=== PATIENT | male | born 1970 | race African-American/Black ===

== ENCOUNTER 2018-08-22 11:26 | Observation (INO) | payer SELFPAY ==
[2018-08-22] MEDS ORDERED: Sodium Chloride 0.9% 2.5 ML Syringe FLUSH PRN (11:30)
[2018-08-22] MEDS ORDERED: Aspirin 81 MG Tab.Chew PO ONE (11:30)
[2018-08-22] MEDS ORDERED: Nitroglycerin 0.4 MG Tab.SL SL PRN (11:30)
--- NOTE | 2018-08-22 11:33 | EDM.PDOC ---
ED HPI GENERAL MEDICAL PROBLEM - General Chief Complaint: Chest Pain Stated Complaint: SPOKE TO NURSE Time Seen by Provider: 08/22/18 11:27 Source of Information: Reports: Patient History Limitations: Reports: No Limitations - History of Present Illness INITIAL COMMENTS - FREE TEXT/NARRATIVE: HISTORY AND PHYSICAL: History of present illness: Patient is a 48-year-old male who presents to the emergency room with complaints of midsternal chest pain and shortness of breath 2 days. He states this morning the symptoms became worse and tried to see his despatch clerk, Dr. Chua, who recommended he come to the emergency room for evaluation. He states that the chest pain does feel somewhat improved if he lays flat in a prone position. Does feel somewhat more short of breath with ambulation. The pain does not radiate anywhere. Patient denies any fever, chills, headache, change in vision, syncope or near syncope. Denies any back pain or cough. Denies any abdominal pain, nausea, vomiting, diarrhea, constipation or dysuria. Has not noted any blood in urine or stool. Patient has been eating and drinking appropriately. Patient has a past medical history of mitral valve regurgitation, congestive heart failure and past GA. Originally from [facility] Review of systems: As per history of present illness and below otherwise all systems reviewed and negative. Past medical history: As per history of present illness and as reviewed below otherwise noncontributory. Surgical history: As per history of present illness and as reviewed below otherwise noncontributory. Social history: See social history for further information Family history: As per history of present illness and as reviewed below otherwise noncontributory. Physical exam: General: Well-developed and well-nourished 48-year-old -[place] male. Alert and oriented. Nontoxic appearing and in no acute distress. HEENT: Atraumatic, normocephalic, pupils equal and reactive bilaterally, negative for conjunctival pallor or scleral icterus, mucous membranes moist, TMs normal bilaterally, throat clear, neck supple, nontender, trachea midline. No drooling or trismus noted. No meningeal signs. No hot potato voice noted. Lungs: Clear to auscultation, breath sounds equal bilaterally, chest nontender. Heart: S1S2, regular rate and rhythm without overt murmur Abdomen: Soft, nondistended, nontender. Negative for masses or hepatosplenomegaly. Negative for costovertebral tenderness. Pelvis: Stable nontender. Genitourinary: Deferred. Rectal: Deferred. Skin: Midline sternal scar noted to chest. Intact, warm, dry. No lesions or rashes noted. Extremities: Atraumatic, moves all extremities per self without difficulty or deficits, negative for cords or calf pain. Neurovascular unremarkable. Neuro: Awake, alert, oriented. Cranial nerves II through XII unremarkable. Cerebellum unremarkable. Motor and sensory unremarkable throughout. Exam nonfocal. Notes: Nitroglycerin being held at this time as his blood pressure, 103/70. Chest x-ray mildly prominent cardiac silhouette. Aortic valve prosthesis. Sternotomy. Pulmonary vascularity is normal. No focal airspace opacity. No pneumothorax or effusion. Lab work is unremarkable. Due to patient's history and presentation will admit him for observation. Dr. Vann was consulted on this case and is agreeable. Diagnostics: CBC, CMP, troponin, EKG, one view chest, BNP Therapeutics: Aspirin, saline lock, nitroglycerin sublingual 3 (HOLD) Impression: Chest pain r/o GA Plan: Observation admission to Med/Surg with telemetry Definitive disposition and diagnosis as appropriate pending reevaluation and review of above. Right Chest Pain Pain Score (Numeric/FACES): 6 - Related Data Allergies Allergy/AdvReac Type Severity Reaction Status Date / Time No Known Allergies Allergy Verified 08/22/18 11:32 Home Meds: Home Meds Fish Oil/[place]-3 Fatty Acids [Fish Oil 1,000 MG] 1 each PO DAILY 02/21/18 [ History] Aspirin [Adult Low Dose Aspirin EC] 81 mg PO DAILY #100 tablet. 02/23/18 [Rx] Furosemide [Lasix] 40 mg PO BID #60 tablet 02/23/18 [Rx] Potassium Chloride [Klor-Con M20] 20 meq PO BID #60 tab.er 02/23/18 [Rx] Carvedilol 25 mg PO BID 08/22/18 [History] Losartan [Cozaar] 25 mg PO BEDTIME 08/22/18 [History] Past Medical History Cardiovascular History: Reports: Heart Failure, Heart Murmur, Other (See Below) (mitral valve regurgitation; elevated right ventricular pressure noted on echocardiogram) Oncologic (Cancer) History: Reports: None - Infectious Disease History Infectious Disease History: Reports: Chicken Pox - Past Surgical History GI Surgical History: Reports: Hernia Repair/Other Social & Family History - Family History Family Medical History: Noncontributory - Caffeine Use Caffeine Use: Reports: None ED ROS GENERAL - Review of Systems Review Of Systems: ROS reveals no pertinent complaints other than HPI. ED EXAM, GENERAL - Physical Exam Exam: See Below (See dictation) Course - Vital Signs Last Recorded V/S: Last Vital Signs Temp 98.8 F 08/22/18 13:08 Pulse 76 08/22/18 13:08 Resp 22 H 08/22/18 13:08 BP 110/67 08/22/18 13:08 Pulse Ox 95 08/22/18 13:08 - Orders/Labs/Meds Orders: Active Orders 24 hr Category Date Time Status Admission Status [Patient Status] [ADT] Stat ADT 08/22/18 12:51 Active EKG Documentation Completion [RC] STAT Care 08/22/18 11:30 Active Nitroglycerin [Nitrostat] Med 08/22/18 11:30 Active 0.4 mg SL Q5M PRN Sodium Chloride 0.9% [Saline Flush] Med 08/22/18 11:30 Active 10 ml FLUSH ASDIRECTED PRN Sodium Chloride 0.9% [Saline Flush] Med 08/22/18 11:30 Active 2.5 ml FLUSH ASDIRECTED PRN Saline Lock Insert [OM.PC] Stat Oth 08/22/18 11:30 Ordered Medication Orders Acetaminophen (Tylenol) 650 mg PO Q4H PRN PRN Reason: Pain (mild 1-3) Nitroglycerin (Nitrostat) 0.4 mg SL Q5M PRN PRN Reason: Chest Pain Ondansetron HCl (Zofran Odt) 4 mg PO Q4H PRN PRN Reason: nausea, able to take PO Sodium Chloride (Saline Flush) 10 ml FLUSH ASDIRECTED PRN PRN Reason: Keep Vein Open Last Admin: 08/22/18 12:38 Dose: 10 ml Sodium Chloride (Saline Flush) 2.5 ml FLUSH ASDIRECTED PRN PRN Reason: Keep Vein Open Last Admin: 08/22/18 12:38 Dose: 2.5 ml Labs: Laboratory Tests 08/22/18 08/22/18 08/22/18 Range/Units 11:35 11:35 11:35 WBC 9.15 (4.0-11.0) K/uL RBC 5.33 (4.50-5.90) M/uL Hgb 14.0 (13.0-17.0) g/dL Hct 42.6 (38.0-50.0) % MCV 79.9 L (80.0-98.0) fL MCH 26.3 L (27.0-32.0) pg MCHC 32.9 (31.0-37.0) g/dL RDW Std Deviation 51.3 (28.0-62.0) fl RDW Coeff of Michael 17 H (11.0-15.0) % Plt Count 121 L (150-400) K/uL MPV (7.40-12.00) fL Neut % (Auto) 71.0 (48.0-80.0) % Lymph % (Auto) 16.4 (16.0-40.0) % Wallace % (Auto) 11.6 (0.0-15.0) % Eos % (Auto) 0.8 (0.0-7.0) % Baso % (Auto) 0.2 (0.0-1.5) % Neut # (Auto) 6.5 H (1.4-5.7) K/uL Lymph # (Auto) 1.5 (0.6-2.4) K/uL Wallace # (Auto) 1.1 H (0.0-0.8) K/uL Eos # (Auto) 0.1 (0.0-0.7) K/uL Baso # (Auto) 0.0 (0.0-0.1) K/uL Nucleated RBC % 0.0 /100WBC Nucleated RBCs # 0 K/uL Sodium 138 (136-148) mmol/L Potassium 4.0 (3.5-5.1) mmol/L Chloride 103 (98-107) mmol/L Carbon Dioxide 28.0 (21.0-32.0) mmol/L BUN 17 (7.0-18.0) mg/dL Creatinine 1.1 (0.8-1.3) mg/dL Est Cr Clr Drug Dosing 75.95 mL/min Estimated GFR (MDRD) > 60.0 ml/min Glucose 137 H (74-106) mg/dL Calcium 9.3 (8.5-10.1) mg/dL Total Bilirubin 1.4 H (0.2-1.0) mg/dL AST 23 (15-37) IU/L ALT 23 (14-63) IU/L Alkaline Phosphatase 58 (46-116) U/L Troponin I < 0.050 (0.000-0.056) ng/mL B-Natriuretic Peptide 79 (<100) PG/ML Total Protein 8.2 (6.4-8.2) g/dL Albumin 3.4 (3.4-5.0) g/dL Globulin 4.8 H (2.6-4.0) g/dL Albumin/Globulin Ratio 0.7 L (0.9-1.6) Meds: Medications Generic Name Dose Route Start Last Admin Trade Name Freq PRN Reason Stop Dose Admin Acetaminophen 650 mg 08/22/18 13:30 Tylenol PO Q4H PRN Pain (mild 1-3) Nitroglycerin 0.4 mg 08/22/18 11:30 Nitrostat SL Q5M PRN Chest Pain Ondansetron HCl 4 mg 08/22/18 13:30 Zofran Odt PO Q4H PRN nausea, able to take PO Sodium Chloride 10 ml 08/22/18 11:30 08/22/18 12:38 Saline Flush FLUSH 10 ml ASDIRECTED PRN Administration Keep Vein Open Sodium Chloride 2.5 ml 08/22/18 11:30 08/22/18 12:38 Saline Flush FLUSH 2.5 ml ASDIRECTED PRN Administration Keep Vein Open Discontinued Medications Generic Name Dose Route Start Last Admin Trade Name Freq PRN Reason Stop Dose Admin Aspirin 324 mg 08/22/18 11:30 08/22/18 11:54 Aspirin PO 08/22/18 11:31 324 mg ONETIME ONE Administration Morphine Sulfate 2 mg 08/22/18 12:18 08/22/18 12:37 Morphine IVPUSH 08/22/18 12:19 2 mg ONETIME ONE Administration Departure - Departure Time of Disposition: 13:36 Disposition: Refer to Observation Clinical Impression: Chest pain, rule out acute myocardial infarction - My Orders Last 24 Hours: My Active Orders 08/22/18 11:30 EKG Documentation Completion [RC] STAT Nitroglycerin [Nitrostat] 0.4 mg SL Q5M PRN Sodium Chloride 0.9% [Saline Flush] 10 ml FLUSH ASDIRECTED PRN Sodium Chloride 0.9% [Saline Flush] 2.5 ml FLUSH ASDIRECTED PRN Saline Lock Insert [OM.PC] Stat 08/22/18 12:51 Admission Status [Patient Status] [ADT] Stat - Assessment/Plan Last 24 Hours: My Active Orders 08/22/18 11:30 EKG Documentation Completion [RC] STAT Nitroglycerin [Nitrostat] 0.4 mg SL Q5M PRN Sodium Chloride 0.9% [Saline Flush] 10 ml FLUSH ASDIRECTED PRN Sodium Chloride 0.9% [Saline Flush] 2.5 ml FLUSH ASDIRECTED PRN Saline Lock Insert [OM.PC] Stat 08/22/18 12:51 Admission Status [Patient Status] [ADT] Stat
[2018-08-22] MEDS ORDERED: Morphine 2 MG/ML Syringe IVPUSH ONE (12:18)
[2018-08-22 12:19] LABS: CHLORIDE,CL 103 mmol/L (98-107); SODIUM,NA 138 mmol/L (136-148)
[2018-08-22] MEDS: Sodium Chloride 0.9% 10 ML Syringe FLUSH PRN ×2 (12:38→21:25)
--- NOTE | 2018-08-22 12:45 | CR ---
INDICATION: Chest pain. TECHNIQUE: One view. FINDINGS: Mildly prominent cardiac silhouette. Aortic valve prosthesis. Sternotomy. Pulmonary vascularity is normal. No focal airspace opacity. No pneumothorax or effusion. Dictated by Artis Belle MD @ Aug 22 2018 12:42PM Signed by Dr. Artis Belle @ Aug 22 2018 12:43PM
[2018-08-22] MEDS ORDERED: Ondansetron 4 MG Tab.DIS PO PRN (13:30)
[2018-08-22] MEDS ORDERED: Acetaminophen 325 MG Tab PO PRN (13:30)
--- NOTE | 2018-08-22 13:42 | PCM.HP ---
H&P History of Present Illness - General Date of Service: 08/22/18 Admit Problem/Dx: Admission Diagnosis/Problem Admission Diagnosis/Problem Chest pain Source of Information: Patient History Limitations: Reports: No Limitations - History of Present Illness Initial Comments - Free Text/Narative: THis 48 year old male with pmh of HTN, CHF, and recent mechanical mitral valve placement on Coumadin in April presented to the ED with R sided chest pain that worsens when he woughs and radiates around his chest and up his neck. Nothing else makes it worse besides coughing. He attempted to take Tylenol the last couple days but it did not help. He denies recent fevers, chills, productive cough, no palpitations or L sided chest pain. No abdominal pain, no urinary or bowel concerns. No peripheral edema or leg pain. No recent long distance travel. He reports he recently started working out and that is when this started hurting, no other trauma or injury. No tobacco use, quit drinking 3 years ago and no recreational drug use. In the ED, no leukocytosis noted, Platelets 121,000. BMP WNL. GLucose 137, Bili 1.4, which is near baseline. Troponin negative. CXR negative. VS stable. EKG reports LVH, no acute ST changes, SR, rates 70s. He will be admitted for chest pain rule out. Dermatology Physician, Dr Berrios Right Chest Pain Pain Score (Numeric/FACES): 6 - Related Data Allergies/Adverse Reactions: Allergies Allergy/AdvReac Type Severity Reaction Status Date / Time No Known Allergies Allergy Verified 08/22/18 11:32 Home Medications: Home Meds Fish Oil/[place]-3 Fatty Acids [Fish Oil 1,000 MG] 1 each PO DAILY 02/21/18 [ History] Aspirin [Adult Low Dose Aspirin EC] 81 mg PO DAILY #100 tablet. 02/23/18 [Rx] Furosemide [Lasix] 40 mg PO BID #60 tablet 02/23/18 [Rx] Potassium Chloride [Klor-Con M20] 20 meq PO BID #60 tab.er 02/23/18 [Rx] Carvedilol 25 mg PO BID 08/22/18 [History] Losartan [Cozaar] 25 mg PO BEDTIME 08/22/18 [History] Past Medical History Cardiovascular History: Reports: Heart Failure, Heart Murmur, Heart Valve Replacement, Other (See Below) (mitral valve regurgitation; elevated right ventricular pressure noted on echocardiogram) Respiratory History: Reports: None Gastrointestinal History: Reports: None Genitourinary History: Reports: None Musculoskeletal History: Reports: None Endocrine/Metabolic History: Denies: Diabetes, Type II, Hypothyroidism Oncologic (Cancer) History: Reports: None - Infectious Disease History Infectious Disease History: Reports: Chicken Pox - Past Surgical History Cardiovascular Surgical History: Reports: Valve Replacement GI Surgical History: Reports: Hernia Repair/Other Social & Family History - Family History Family Medical History: Noncontributory - Tobacco Use Smoking Status *Q: Never Smoker - Caffeine Use Caffeine Use: Reports: None - Alcohol Use Alcohol Use History: No Alcohol Use in Last Twelve Months: No - Recreational Drug Use Recreational Drug Use: No H&P Review of Systems - Review of Systems: Review Of Systems: See Below General: Reports: No Symptoms. Denies: Fever, Chills, Malaise, Weakness HEENT: Reports: No Symptoms. Denies: Headaches, Sinus Congestion Pulmonary: Denies: Shortness of Breath Cardiovascular: Reports: Chest Pain (R sided near lower rib cage). Denies: Edema, Lightheadedness, Blood Pressure Problem Gastrointestinal: Denies: Abdominal Pain, Black Stool, Bloody Stool, Nausea, Vomiting Genitourinary: Reports: No Symptoms. Denies: Dysuria, Frequency, Burning Musculoskeletal: Reports: No Symptoms Skin: Reports: No Symptoms Psychiatric: Reports: No Symptoms Neurological: Reports: No Symptoms Hematologic/Lymphatic: Reports: No Symptoms Immunologic: Reports: No Symptoms Exam - Exam Exam: See Below - Vital Signs Vital Signs: Last Vital Signs Temp 98.8 F 08/22/18 13:08 Pulse 76 08/22/18 13:08 Resp 22 H 08/22/18 13:08 BP 110/67 08/22/18 13:08 Pulse Ox 95 08/22/18 13:08 Weight: 81.647 kg - Exam General: Alert, Oriented, Cooperative HEENT: Conjunctiva Clear Lungs: Clear to Auscultation, Normal Respiratory Effort Cardiovascular: Regular Rate, Regular Rhythm GI/Abdominal Exam: Normal Bowel Sounds, Soft, Non-Tender, No Organomegaly, No Mass Back Exam: Normal Inspection, Full Range of Motion Extremities: Normal Inspection, Normal Range of Motion, Non-Tender, No Pedal Edema Neuro Extensive - Mental Status: Alert, Oriented x3 Neuro Extensive - Motor, Sensory, Reflexes: CN II-XII Intact Psychiatric: Alert, Normal Affect, Normal Mood - Patient Data Lab Results Last 24 hrs: Laboratory Results - last 24 hr 08/22/18 08/22/18 08/22/18 Range/Units 11:35 11:35 11:35 WBC 9.15 (4.0-11.0) K/uL RBC 5.33 (4.50-5.90) M/uL Hgb 14.0 (13.0-17.0) g/dL Hct 42.6 (38.0-50.0) % MCV 79.9 L (80.0-98.0) fL MCH 26.3 L (27.0-32.0) pg MCHC 32.9 (31.0-37.0) g/dL RDW Std Deviation 51.3 (28.0-62.0) fl RDW Coeff of Mihcael 17 H (11.0-15.0) % Plt Count 121 L (150-400) K/uL MPV (7.40-12.00) fL Neut % (Auto) 71.0 (48.0-80.0) % Lymph % (Auto) 16.4 (16.0-40.0) % [place] % (Auto) 11.6 (0.0-15.0) % Eos % (Auto) 0.8 (0.0-7.0) % Baso % (Auto) 0.2 (0.0-1.5) % Neut # (Auto) 6.5 H (1.4-5.7) K/uL Lymph # (Auto) 1.5 (0.6-2.4) K/uL [place] # (Auto) 1.1 H (0.0-0.8) K/uL Eos # (Auto) 0.1 (0.0-0.7) K/uL Baso # (Auto) 0.0 (0.0-0.1) K/uL Nucleated RBC % 0.0 /100WBC Nucleated RBCs # 0 K/uL Sodium 138 (136-148) mmol/L Potassium 4.0 (3.5-5.1) mmol/L Chloride 103 (98-107) mmol/L Carbon Dioxide 28.0 (21.0-32.0) mmol/L BUN 17 (7.0-18.0) mg/dL Creatinine 1.1 (0.8-1.3) mg/dL Est Cr Clr Drug Dosing 75.95 mL/min Estimated GFR (MDRD) > 60.0 ml/min Glucose 137 H (74-106) mg/dL Calcium 9.3 (8.5-10.1) mg/dL Total Bilirubin 1.4 H (0.2-1.0) mg/dL AST 23 (15-37) IU/L ALT 23 (14-63) IU/L Alkaline Phosphatase 58 (46-116) U/L Troponin I < 0.050 (0.000-0.056) ng/mL B-Natriuretic Peptide 79 (<100) PG/ML Total Protein 8.2 (6.4-8.2) g/dL Albumin 3.4 (3.4-5.0) g/dL Globulin 4.8 H (2.6-4.0) g/dL Albumin/Globulin Ratio 0.7 L (0.9-1.6) Result Diagrams: 08/22/18 11:35 08/22/18 11:35 EKG INTERPRETATION EKG Date: 08/22/18 Rhythm: NSR Rate (Beats/Min): 75 QRS: Normal (LVH) ST-T: Normal QT: Normal - Problem List (1) Atypical chest pain SNOMED Code(s): 759166458 ICD Code: R07.89 - OTHER CHEST PAIN Status: Acute Current Visit: Yes (2) Anticoagulated SNOMED Code(s): 450514300, 955788994 ICD Code: Z79.01 - ROTARY FURNACE OPERATOR (CURRENT) USE OF ANTICOAGULANTS Status: Chronic Current Visit: Yes (3) Mitral valve replaced SNOMED Code(s): 7004646566047, 0779130379835 ICD Code: Z95.2 - PRESENCE OF PROSTHETIC HEART VALVE Status: Chronic Current Visit: Yes (4) Congestive heart failure SNOMED Code(s): 16590942 ICD Code: I50.9 - HEART FAILURE, UNSPECIFIED Status: Chronic Current Visit: No Qualifiers: Heart failure type: unspecified Heart failure chronicity: chronic Qualified Code(s): I50.9 - Heart failure, unspecified (5) Afib SNOMED Code(s): 29286113 ICD Code: I48.91 - UNSPECIFIED ATRIAL FIBRILLATION Status: Acute Current Visit: Yes Problem List Initiated/Reviewed/Updated: Yes Orders Last 24hrs: Active Orders 24 hr Category Date Time Status Admission Status [Patient Status] [ADT] Stat ADT 08/22/18 12:51 Active Antiembolic Devices [RC] PER UNIT ROUTINE Care 08/22/18 13:31 Ordered EKG Documentation Completion [RC] STAT Care 08/22/18 11:30 Active Intake and Output [RC] QSHIFT Care 08/22/18 13:30 Ordered Oxygen Therapy [RC] PRN Care 08/22/18 13:30 Ordered Telemetry Monitoring [Cardiac Monitoring] [RC] . Care 08/22/18 13:33 Ordered DIRECTED Up ad Corina [RC] ASDIRECTED Care 08/22/18 13:30 Ordered VTE/DVT Education [RC] PER UNIT ROUTINE Care 08/22/18 13:30 Ordered Vital Signs [RC] Q4H Care 08/22/18 13:30 Ordered Heart Healthy Diet [DIET] Diet 08/22/18 Lunch Ordered TROPONIN I [CHEM] Q6H Lab 08/22/18 17:30 Ordered TROPONIN I [CHEM] Q6H Lab 08/22/18 23:30 Ordered Acetaminophen [Tylenol] Med 08/22/18 13:30 Ordered 650 mg PO Q4H PRN Nitroglycerin [Nitrostat] Med 08/22/18 11:30 Active 0.4 mg SL Q5M PRN Ondansetron [Zofran ODT] Med 08/22/18 13:30 Ordered 4 mg PO Q4H PRN Sodium Chloride 0.9% [Saline Flush] Med 08/22/18 11:30 Active 10 ml FLUSH ASDIRECTED PRN Sodium Chloride 0.9% [Saline Flush] Med 08/22/18 11:30 Active 2.5 ml FLUSH ASDIRECTED PRN Saline Lock Insert [OM.PC] Stat Oth 08/22/18 11:30 Ordered Sequential Compression Device [OM.PC] Per Unit Routine Oth 08/22/18 13:31 Ordered Resuscitation Status Routine Resus Stat 08/22/18 13:30 Ordered Medication Orders Acetaminophen (Tylenol) 650 mg PO Q4H PRN PRN Reason: Pain (mild 1-3) Nitroglycerin (Nitrostat) 0.4 mg SL Q5M PRN PRN Reason: Chest Pain Ondansetron HCl (Zofran Odt) 4 mg PO Q4H PRN PRN Reason: nausea, able to take PO Sodium Chloride (Saline Flush) 10 ml FLUSH ASDIRECTED PRN PRN Reason: Keep Vein Open Last Admin: 08/22/18 12:38 Dose: 10 ml Sodium Chloride (Saline Flush) 2.5 ml FLUSH ASDIRECTED PRN PRN Reason: Keep Vein Open Last Admin: 08/22/18 12:38 Dose: 2.5 ml Assessment/Plan Comment:: This 48 year old male admitted with atypical chest pain, r sided 1. Chest pain: Trend troponins and monitor on telemetry due to history. Set up with outpatient appointment with his Dermatology Physician Dr berrios. Recently started working out more, may be musculoskeletal in nature. 2. Afib: occurred post operatively after MV replacement. Continue Coreg and Coumadin. Check INR. 3. Cardiomyopathy: Continue Losartan, Aldactone. No signs of acute CHF. VTE prophylaxis: Coumadin Dispo: 1 day
[2018-08-22] MEDS ORDERED: Warfarin 2.5 MG Tab PO SCH (15:00)
[2018-08-22] MEDS ORDERED: Losartan 50 MG Tab PO SCH (21:00)
[2018-08-22] MEDS: Carvedilol 25 MG Tab PO SCH (21:24)
[2018-08-23] MEDS: traMADol 50 MG Tab PO PRN ×3 (00:42→14:41)
[2018-08-23] MEDS: Carvedilol 25 MG Tab PO SCH (08:58)
[2018-08-23] MEDS ORDERED: Fish Oil/Omega-3 Fatty Acids 1 Gm Cap PO SCH (09:00)
[2018-08-23] MEDS ORDERED: LYCOPENE PO SCH (09:00)
[2018-08-23] MEDS ORDERED: Furosemide 40 MG Tab PO SCH (09:00)
[2018-08-23] MEDS ORDERED: MV CA IRON MIN PO SCH (09:00)
[2018-08-23] MEDS ORDERED: LUT PO SCH (09:00)
[2018-08-23] MEDS ORDERED: Aspirin 81 MG Tab.EC PO SCH (09:00)
[2018-08-23] MEDS ORDERED: Potassium Chloride 20 MEQ Tab.ER PO SCH (09:00)
[2018-08-23] MEDS ORDERED: [UNRECOGNIZED DRUG - OTHER] PO SCH (09:00)
[2018-08-23] MEDS ORDERED: Spironolactone 25 MG Tab PO SCH (09:00)
[2018-08-23] MEDS ORDERED: Warfarin 2.5 MG Tab PO SCH (14:00)
--- NOTE | 2018-08-23 16:15 | PCM.DCSUM1 ---
Discharge Summary - Discharge Data Discharge Date: 08/23/18 Discharge Disposition: Home, Self-Care 01 Condition: Good - Patient Summary/Data Hospital Course: 48 year old male with pmh of HTN, CHF, and recent mechanical mitral valve placement on Coumadin in April presented to the ED with complaints of chest pain. He ruled out for acute coronary syndrome with serial negative cardiac enzymes and EKGs. Today he is requesting discharge home. He is to follow up with Dr. Cornell. His INR was not at target. He is to increase his Coumadin to 7.5 for the next two days until he follows up with the Coumadin clinic on Saturday. - Discharge Plan Home Medications: Home Meds Fish Oil/[place]-3 Fatty Acids [Fish Oil 1,000 MG] 2 each PO DAILY 02/21/18 [ History] Aspirin [Adult Low Dose Aspirin EC] 81 mg PO DAILY #100 tablet. 02/23/18 [Rx] Carvedilol 25 mg PO BID 08/22/18 [History] FA/Lycopene/Lut/MV,Ca,Iron,Min [Centrum] 1 tab PO DAILY 08/22/18 [History] Furosemide [Lasix] 40 mg PO DAILY 08/22/18 [History] Losartan [Cozaar] 25 mg PO BEDTIME 08/22/18 [History] Potassium Chloride [Klor-Con M20] 20 meq PO DAILY 08/22/18 [History] Spironolactone [Aldactone] 12.5 mg PO DAILY 08/22/18 [History] Warfarin [Coumadin] 5 mg PO ASDIRECTED 08/22/18 [History] Patient Handouts: Nonspecific Chest Pain, [id number] Referrals: Viet Berrios MD [Physician] - 09/02/18 3:00 pm - Discharge Summary/Plan Comment DC Time >30 min.: No - Patient Data Vitals - Most Recent: Last Vital Signs Temp 36.7 C 08/23/18 12:00 Pulse 71 08/23/18 12:00 Resp 16 08/23/18 12:00 BP 98/57 L 08/23/18 12:00 Pulse Ox 94 L 08/23/18 12:00 Weight - Most Recent: 81.647 kg I&O - Last 24 hours: Intake & Output 08/23/18 08/23/18 08/23/18 06:59 14:59 22:59 Intake Total 480 Output Total 600 Balance -120 Lab Results - Last 24 hrs: Laboratory Results - last 24 hr 08/22/18 08/22/18 08/23/18 Range/Units 17:28 23:32 05:58 INR 1.17 Troponin I < 0.050 < 0.050 (0.000-0.056) ng/mL Med Orders - Current: Current Medications Acetaminophen (Tylenol) 650 mg PO Q4H PRN PRN Reason: Pain (mild 1-3) Last Admin: 08/23/18 04:51 Dose: 650 mg Aspirin (Halfprin) 81 mg PO DAILY [facility] Last Admin: 08/23/18 08:58 Dose: 81 mg Carvedilol (Coreg) 25 mg PO BID [facility] Last Admin: 08/23/18 08:58 Dose: 25 mg Fish Oil (Fish Oil) 2 gm PO DAILY [facility] Last Admin: 08/23/18 08:59 Dose: 2 gm Furosemide (Lasix) 40 mg PO DAILY [facility] Last Admin: 08/23/18 08:57 Dose: 40 mg Losartan Potassium (Cozaar) 25 mg PO BEDTIME [facility] Last Admin: 08/22/18 21:24 Dose: 25 mg Nitroglycerin (Nitrostat) 0.4 mg SL Q5M PRN PRN Reason: Chest Pain Ondansetron HCl (Zofran Odt) 4 mg PO Q4H PRN PRN Reason: nausea, able to take PO Fa/Lycopene/Lut/Mv, (Ca,Iron,Min 1 Tab) 1 each PO DAILY [facility] Last Admin: 08/23/18 09:06 Dose: 1 each Potassium Chloride (Klor-Con M20) 20 meq PO DAILY [facility] Last Admin: 08/23/18 08:59 Dose: 20 meq Sodium Chloride (Saline Flush) 10 ml FLUSH ASDIRECTED PRN PRN Reason: Keep Vein Open Last Admin: 08/22/18 21:25 Dose: 10 ml Sodium Chloride (Saline Flush) 2.5 ml FLUSH ASDIRECTED PRN PRN Reason: Keep Vein Open Last Admin: 08/22/18 12:38 Dose: 2.5 ml Spironolactone (Aldactone) 12.5 mg PO DAILY [facility] Last Admin: 08/23/18 08:59 Dose: 12.5 mg Tramadol HCl (Ultram) 50 mg PO Q6H PRN PRN Reason: Pain Last Admin: 08/23/18 14:41 Dose: 50 mg Warfarin Sodium (Coumadin Ask) 1 each PO DAILY@1400 [facility] Last Admin: 08/23/18 14:45 Dose: Not Given Discontinued Medications Aspirin (Aspirin) 324 mg PO ONETIME ONE Stop: 08/22/18 11:31 Last Admin: 08/22/18 11:54 Dose: 324 mg Morphine Sulfate (Morphine) 2 mg IVPUSH ONETIME ONE Stop: 08/22/18 12:19 Last Admin: 08/22/18 12:37 Dose: 2 mg Warfarin Sodium (Coumadin) 7.5 mg PO 08/22/18@1500 [facility] Stop: 08/22/18 15:01 Last Admin: 08/22/18 15:10 Dose: 7.5 mg Warfarin Sodium (Coumadin) 7.5 mg PO 08/23/18@1400 [facility] Stop: 08/23/18 14:01 Last Admin: 08/23/18 14:18 Dose: 7.5 mg
== END 2018-08-23 16:15 | disposition home or self-care (01) ==
LOC: MW.ED 11:26 → MW.MS 13:27
PROVIDERS: ADMIT Internal Medicine; ATTEND Internal Medicine
DX: R07.89 Other chest pain (principal); I43 Cardiomyopathy in diseases classified elsewhere; I11.0 Hypertensive heart disease with heart failure; I50.9 Heart failure, unspecified; I48.91 Unspecified atrial fibrillation; E11.9 Type 2 diabetes mellitus without complications; E03.9 Hypothyroidism, unspecified; Z79.82 Long term (current) use of aspirin; Z79.01 Long term (current) use of anticoagulants; Z95.2 Presence of prosthetic heart valve
CPT/HCPCS: 36415; 71045; 80053; 83880; 84484; 85025; 85610; 93005; 96374; 99285; A9270; J2270; 99284; G0378

== ENCOUNTER 2019-02-15 15:06 | Observation (INO) | payer SELFPAY ==
[2019-02-15] MEDS ORDERED: Sodium Chloride 0.9% 1,000 ML IV ONE (15:22)
--- NOTE | 2019-02-15 15:46 | EDM.PDOC ---
ED HPI GENERAL MEDICAL PROBLEM - General Chief Complaint: General Stated Complaint: COUGHING;BLOOD Time Seen by Provider: 02/15/19 15:31 - History of Present Illness INITIAL COMMENTS - FREE TEXT/NARRATIVE: HISTORY AND PHYSICAL: History of present illness: Patient's a 48-year-old black male with a history of valvular heart disease was on Coumadin presents with a concern of hemoptysis this is been 1 day and is poorly qualified and poorly quantified he denies shortness of breath nausea vomiting chest pain fever chills or other complaints Review of systems: As per history of present illness and below otherwise all systems reviewed and negative. Past medical history: As per history of present illness and as reviewed below otherwise noncontributory. Surgical history: As per history of present illness and as reviewed below otherwise noncontributory. Social history: No reported history of drug or alcohol abuse. Family history: As per history of present illness and as reviewed below otherwise noncontributory. Physical exam: HEENT: Atraumatic, normocephalic, pupils reactive, negative for conjunctival pallor or scleral icterus, mucous membranes moist, throat clear, neck supple, nontender, trachea midline. Lungs: Clear to auscultation, breath sounds equal bilaterally, chest nontender. Heart: S1S2, regular, negative for clicks, rubs, or JVD. Abdomen: Soft, nondistended, nontender. Negative for masses or hepatosplenomegaly. Negative for costovertebral tenderness. Pelvis: Stable nontender. Genitourinary: Deferred. Rectal: Deferred. Extremities: Atraumatic, negative for cords or calf pain. Neurovascular unremarkable. Neuro: Awake, alert, oriented. Cranial nerves II through XII unremarkable. Cerebellum unremarkable. Motor and sensory unremarkable throughout. Exam nonfocal. Diagnostics: EBC CMP troponin PT/INR chest x-ray EKG Therapeutics: IV O2 monitor Impression: # 1 history of valvular heart disease with valve replacement # 2 history of hemoptysis Definitive disposition and diagnosis as appropriate pending reevaluation and review of above. generalized Pain Score (Numeric/FACES): 4 - Related Data Allergies Allergy/AdvReac Type Severity Reaction Status Date / Time No Known Allergies Allergy Verified 02/15/19 15:15 Home Meds: Home Meds Fish Oil/[place]-3 Fatty Acids [Fish Oil 1,000 MG] 2 each PO DAILY 02/21/18 [ History] Aspirin [Adult Low Dose Aspirin EC] 81 mg PO DAILY #100 tablet. 02/23/18 [Rx] Carvedilol 25 mg PO BID 08/22/18 [History] FA/Lycopene/Lut/MV,Ca,Iron,Min [Centrum] 1 tab PO DAILY 08/22/18 [History] Furosemide [Lasix] 40 mg PO DAILY 08/22/18 [History] Losartan [Cozaar] 50 mg PO BEDTIME 08/22/18 [History] Potassium Chloride [Klor-Con M20] 20 meq PO DAILY 08/22/18 [History] Spironolactone [Aldactone] 1 tab PO DAILY 08/22/18 [History] Warfarin [Coumadin] 2.5 tab PO ASDIRECTED 08/22/18 [History] Past Medical History Cardiovascular History: Reports: Heart Failure, Heart Murmur, Heart Valve Replacement, Other (See Below) Respiratory History: Reports: None Gastrointestinal History: Reports: None Genitourinary History: Reports: None Musculoskeletal History: Reports: None Oncologic (Cancer) History: Reports: None - Infectious Disease History Infectious Disease History: Reports: Chicken Pox - Past Surgical History Cardiovascular Surgical History: Reports: Valve Replacement GI Surgical History: Reports: Hernia Repair/Other Social & Family History - Family History Family Medical History: Noncontributory - Tobacco Use Smoking Status *Q: Never Smoker - Caffeine Use Caffeine Use: Reports: None - Recreational Drug Use Recreational Drug Use: No ED ROS GENERAL - Review of Systems Review Of Systems: Comprehensive ROS is negative, except as noted in HPI. ED EXAM, GENERAL - Physical Exam Exam: See Below (Dictation) Course - Vital Signs Last Recorded V/S: Last Vital Signs Temp 36.2 C 02/15/19 15:12 Pulse 87 02/15/19 15:12 Resp 18 02/15/19 15:12 BP 118/71 02/15/19 15:12 Pulse Ox 97 02/15/19 15:12 - Orders/Labs/Meds Orders: Active Orders 24 hr Category Date Time Status EKG Documentation Completion [RC] STAT Care 02/15/19 15:22 Active B-TYPE NATRIURETIC PEPTIDE,BNP [CHEM] Stat Lab 02/15/19 15:40 Received UA RFX [place] AND CULT IF INDIC [URIN] Stat Lab 11/17/19 15:22 Ordered Labs: Laboratory Tests 02/15/19 02/15/19 02/15/19 Range/Units 15:40 15:40 15:40 WBC 9.17 (4.0-11.0) K/uL RBC 5.24 (4.50-5.90) M/uL Hgb 14.4 (13.0-17.0) g/dL Hct 42.7 (38.0-50.0) % MCV 81.5 (80.0-98.0) fL MCH 27.5 (27.0-32.0) pg MCHC 33.7 (31.0-37.0) g/dL RDW Std Deviation 43.8 (28.0-62.0) fl RDW Coeff of Michael 15 (11.0-15.0) % Plt Count 153 (150-400) K/uL MPV 11.70 (7.40-12.00) fL Neut % (Auto) 72.9 (48.0-80.0) % Lymph % (Auto) 18.6 (16.0-40.0) % [place] % (Auto) 8.1 (0.0-15.0) % Eos % (Auto) 0.2 (0.0-7.0) % Baso % (Auto) 0.2 (0.0-1.5) % Neut # (Auto) 6.7 H (1.4-5.7) K/uL Lymph # (Auto) 1.7 (0.6-2.4) K/uL [place] # (Auto) 0.7 (0.0-0.8) K/uL Eos # (Auto) 0.0 (0.0-0.7) K/uL Baso # (Auto) 0.0 (0.0-0.1) K/uL Nucleated RBC % 0.0 /100WBC Nucleated RBCs # 0 K/uL INR 7.54 H* Sodium 137 (136-148) mmol/L Potassium 4.1 (3.5-5.1) mmol/L Chloride 102 (98-107) mmol/L Carbon Dioxide 27.1 (21.0-32.0) mmol/L BUN 20 H (7.0-18.0) mg/dL Creatinine 1.3 (0.8-1.3) mg/dL Est Cr Clr Drug Dosing 64.26 mL/min Estimated GFR (MDRD) > 60.0 ml/min Glucose 113 H (74-106) mg/dL Calcium 9.0 (8.5-10.1) mg/dL Total Bilirubin 1.4 H (0.2-1.0) mg/dL AST 22 (15-37) IU/L ALT 34 (14-63) IU/L Alkaline Phosphatase 60 (46-116) U/L Total Protein 8.0 (6.4-8.2) g/dL Albumin 3.7 (3.4-5.0) g/dL Globulin 4.3 H (2.6-4.0) g/dL Albumin/Globulin Ratio 0.9 (0.9-1.6) Meds: Medications Discontinued Medications Generic Name Dose Route Start Last Admin Trade Name Freq PRN Reason Stop Dose Admin Sodium Chloride 1,000 mls @ 999 mls/hr 02/15/19 15:22 02/15/19 15:53 Normal Saline IV 02/15/19 16:22 999 mls/hr STAT ONE Administration Departure - Departure Time of Disposition: 16:31 Disposition: Refer to Observation Condition: Good Clinical Impression: Hemoptysis, Coumadin toxicity - Discharge Information Referrals: Viet Berrios MD [Primary Care Provider] - Forms: ED Department Discharge - My Orders Last 24 Hours: My Active Orders 02/15/19 15:40 B-TYPE NATRIURETIC PEPTIDE,BNP [CHEM] Stat - Assessment/Plan Last 24 Hours: My Active Orders 02/15/19 15:40 B-TYPE NATRIURETIC PEPTIDE,BNP [CHEM] Stat
--- NOTE | 2019-02-15 16:19 | CR ---
Indication: Dyspnea. Technique: PA and lateral views of the chest.. Comparison: August 22, 2018. Findings: The heart is enlarged. The lungs are clear. No infiltrate, pleural effusion, pneumothorax identified. Median sternotomy wires are identified. Impression: Stable chest x-ray Dictated by Lesley Linda MD @ Feb 15 2019 4:15PM Signed by Dr. Lesley Linda @ Feb 15 2019 4:18PM
[2019-02-15 16:23] LABS: BLOOD UREA NITROGEN,BUN 20 mg/dL (7.0-18.0); CARBON DIOXIDE,CO2 27.1 mmol/L (21.0-32.0); CHLORIDE,CL 102 mmol/L (98-107); GLUCOSE RANDOM 113 mg/dL (74-106); POTASSIUM,K 4.1 mmol/L (3.5-5.1); SODIUM,NA 137 mmol/L (136-148)
[2019-02-15] MEDS ORDERED: Ondansetron 4 MG/2 ML SDV IVPUSH PRN (16:58)
[2019-02-15] MEDS ORDERED: Albuterol/Ipratropium 3.0-0.5 MG/3 ML Neb Soln NEB PRN (16:58)
--- NOTE | 2019-02-15 17:25 | PCM.HP.2 ---
H&P History of Present Illness - General Date of Service: 02/15/19 Admit Problem/Dx: Admission Diagnosis/Problem Admission Diagnosis/Problem Hemoptysis Source of Information: Patient History Limitations: Reports: No Limitations - History of Present Illness Initial Comments - Free Text/Narative: Patient is a 48 y/o male with PMH of mechanical heart valve, who comes in for evaluation of coughing up blood and nasal bleeding. Patient states that yesterday he had an episode where he started coughing blood (quantified it as "1 /4 of a juice cup"), and slight nasal bleeding. No more episodes of bleeding today. Patient states he is on warfarin since apr after he got his mechanical valve. Patient states he checked hid INR 1 month back. Denied, chest pain, N/V, SOB, abdominal pain, fever, chills, bloody urine or stool. In the ER, INR was found to be high (7.9). Patient didn't receive any reversal agents in ER, as bleeding had subsided, Hb was stable. Patient is being admitted for management of Supra-therapeutic INR. generalized Pain Score (Numeric/FACES): 4 - Related Data Allergies/Adverse Reactions: Allergies Allergy/AdvReac Type Severity Reaction Status Date / Time No Known Allergies Allergy Verified 02/15/19 17:07 Home Medications: Home Meds Fish Oil/[place]-3 Fatty Acids [Fish Oil 1,000 MG] 2 each PO DAILY 02/21/18 [ History] Aspirin [Adult Low Dose Aspirin EC] 81 mg PO DAILY #100 tablet. 02/23/18 [Rx] FA/Lycopene/Lut/MV,Ca,Iron,Min [Centrum] 1 tab PO DAILY 08/22/18 [History] Furosemide [Lasix] 40 mg PO QAM 08/22/18 [History] Potassium Chloride [Klor-Con M20] 20 meq PO DAILY 08/22/18 [History] Spironolactone [Aldactone] 1 tab PO DAILY 08/22/18 [History] Warfarin [Coumadin] 5 mg PO ASDIRECTED 30 Days #36 tablet 02/17/19 [Rx] carvediloL [Coreg] 12.5 mg PO BID 30 Days #60 tablet 02/17/19 [Rx] Past Medical History HEENT History: Reports: None Cardiovascular History: Reports: Heart Failure, Heart Murmur, Heart Valve Replacement, Other (See Below) Respiratory History: Reports: None Gastrointestinal History: Reports: None Genitourinary History: Reports: None Musculoskeletal History: Reports: None Hematologic History: Reports: Anticoagulation Therapy Oncologic (Cancer) History: Reports: None - Infectious Disease History Infectious Disease History: Reports: Chicken Pox - Past Surgical History Cardiovascular Surgical History: Reports: Valve Replacement GI Surgical History: Reports: Hernia Repair/Other Social & Family History - Family History Family Medical History: Noncontributory - Tobacco Use Smoking Status *Q: Never Smoker - Caffeine Use Caffeine Use: Reports: None - Recreational Drug Use Recreational Drug Use: No H&P Review of Systems - Review of Systems: Review Of Systems: See Below General: Denies: Fever, Chills, Malaise, Weakness, Fatigue HEENT: Reports: Contact Lenses. Denies: Dysphasia, Ear Pain, Eye Pain Pulmonary: Reports: Hemoptysis. Denies: Shortness of Breath, Wheezing, Pleuritic Chest Pain, Cough, Sputum Cardiovascular: Reports: Palpitations. Denies: Chest Pain, Dyspnea on Exertion Gastrointestinal: Reports: Abdominal Pain. Denies: Anorexia, Black Stool Genitourinary: Reports: Dysuria, Burning. Denies: Frequency Musculoskeletal: Reports: Neck Pain, Shoulder Pain Skin: Denies: Cyanosis, Jaundice, Mottled Psychiatric: Denies: Confusion, Depression Neurological: Reports: Confusion, Headache. Denies: Dizziness Hematologic/Lymphatic: Reports: Easy Bleeding Exam - Exam Exam: See Below - Vital Signs Vital Signs: Last Vital Signs Temp 36.8 C 02/15/19 17:03 Pulse 70 02/15/19 17:03 Resp 16 02/15/19 17:03 BP 121/78 02/15/19 17:03 Pulse Ox 97 02/15/19 17:03 Weight: 90.945 kg - Exam General: Alert, Oriented, Cooperative. No: Lethargic HEENT: Conjunctiva Clear, EOMI, Nares Patent Neck: Supple Lungs: Clear to Auscultation, Normal Respiratory Effort Cardiovascular: Regular Rate, Regular Rhythm, Systolic Murmur GI/Abdominal Exam: Normal Bowel Sounds, Soft, Non-Tender Extremities: Normal Inspection Peripheral Pulses: 3+: Dorsalis Pedis (L), Dorsalis Pedis (R) - Patient Data Lab Results Last 24 hrs: Laboratory Results - last 24 hr 1102/15/19 02/15/19 Range/Units 15:40 15:40 15:40 WBC 9.17 (4.0-11.0) K/uL RBC 5.24 (4.50-5.90) M/uL Hgb 14.4 (13.0-17.0) g/dL Hct 42.7 (38.0-50.0) % MCV 81.5 (80.0-98.0) fL MCH 27.5 (27.0-32.0) pg MCHC 33.7 (31.0-37.0) g/dL RDW Std Deviation 43.8 (28.0-62.0) fl RDW Coeff of Michael 15 (11.0-15.0) % Plt Count 153 (150-400) K/uL MPV 11.70 (7.40-12.00) fL Neut % (Auto) 72.9 (48.0-80.0) % Lymph % (Auto) 18.6 (16.0-40.0) % [place] % (Auto) 8.1 (0.0-15.0) % Eos % (Auto) 0.2 (0.0-7.0) % Baso % (Auto) 0.2 (0.0-1.5) % Neut # (Auto) 6.7 H (1.4-5.7) K/uL Lymph # (Auto) 1.7 (0.6-2.4) K/uL [place] # (Auto) 0.7 (0.0-0.8) K/uL Eos # (Auto) 0.0 (0.0-0.7) K/uL Baso # (Auto) 0.0 (0.0-0.1) K/uL Nucleated RBC % 0.0 /100WBC Nucleated RBCs # 0 K/uL INR 7.54 H* Sodium 137 (136-148) mmol/L Potassium 4.1 (3.5-5.1) mmol/L Chloride 102 (98-107) mmol/L Carbon Dioxide 27.1 (21.0-32.0) mmol/L BUN 20 H (7.0-18.0) mg/dL Creatinine 1.3 (0.8-1.3) mg/dL Est Cr Clr Drug Dosing 64.26 mL/min Estimated GFR (MDRD) > 60.0 ml/min Glucose 113 H (74-106) mg/dL Calcium 9.0 (8.5-10.1) mg/dL Total Bilirubin 1.4 H (0.2-1.0) mg/dL AST 22 (15-37) IU/L ALT 34 (14-63) IU/L Alkaline Phosphatase 60 (46-116) U/L B-Natriuretic Peptide (<100) PG/ML Total Protein 8.0 (6.4-8.2) g/dL Albumin 3.7 (3.4-5.0) g/dL Globulin 4.3 H (2.6-4.0) g/dL Albumin/Globulin Ratio 0.9 (0.9-1.6) 02/15/19 Range/Units 15:40 WBC (4.0-11.0) K/uL RBC (4.50-5.90) M/uL Hgb (13.0-17.0) g/dL Hct (38.0-50.0) % MCV (80.0-98.0) fL MCH (27.0-32.0) pg MCHC (31.0-37.0) g/dL RDW Std Deviation (28.0-62.0) fl RDW Coeff of Michael (11.0-15.0) % Plt Count (150-400) K/uL MPV (7.40-12.00) fL Neut % (Auto) (48.0-80.0) % Lymph % (Auto) (16.0-40.0) % [place] % (Auto) (0.0-15.0) % Eos % (Auto) (0.0-7.0) % Baso % (Auto) (0.0-1.5) % Neut # (Auto) (1.4-5.7) K/uL Lymph # (Auto) (0.6-2.4) K/uL [place] # (Auto) (0.0-0.8) K/uL Eos # (Auto) (0.0-0.7) K/uL Baso # (Auto) (0.0-0.1) K/uL Nucleated RBC % /100WBC Nucleated RBCs # K/uL INR Sodium (136-148) mmol/L Potassium (3.5-5.1) mmol/L Chloride (98-107) mmol/L Carbon Dioxide (21.0-32.0) mmol/L BUN (7.0-18.0) mg/dL Creatinine (0.8-1.3) mg/dL Est Cr Clr Drug Dosing mL/min Estimated GFR (MDRD) ml/min Glucose (74-106) mg/dL Calcium (8.5-10.1) mg/dL Total Bilirubin (0.2-1.0) mg/dL AST (15-37) IU/L ALT (14-63) IU/L Alkaline Phosphatase (46-116) U/L B-Natriuretic Peptide 41 (<100) PG/ML Total Protein (6.4-8.2) g/dL Albumin (3.4-5.0) g/dL Globulin (2.6-4.0) g/dL Albumin/Globulin Ratio (0.9-1.6) Result Diagrams: 02/17/19 06:18 02/17/19 06:18 [place] Results Last 24 hrs: Microbiology 02/15/19 15:20 Influenza Type A Antigen Screen - Final Nasopharyngeal Swab NEGATIVE INFLUENZA A VIRUS AG REFERENCE RANGE: NEGATIVE Influenza Type B Antigen Screen - Final NEGATIVE INFLUENZA B VIRUS AG REFERENCE RANGE: NEGATIVE *Q Meaningful Use (ADM) - VTE Risk Assess *Q Each Risk Factor Represents 1 Point: Age 41 - 59 years Total Score 1 Point Risk Factors: 1 Each Risk Factor Represents 2 Points: None Total Score 2 Point Risk Factors: 0 Each Risk Factor Represents 3 Points: None Total Score 3 Point Risk Factors: 0 Each Risk Factor Represents 5 Points: None Total Score 5 Point Risk Factors: 0 Venous Thromboembolism Risk Factor Score *Q: 1 - Problem List (1) Mechanical heart valve present SNOMED Code(s): 33577649879330, 09132013, 485118741, 572300157, 25463155384325 ICD Code: Z95.2 - PRESENCE OF PROSTHETIC HEART VALVE Status: Acute (2) Coumadin toxicity SNOMED Code(s): 71726337 ICD Code: T45.511A - POISONING BY ANTICOAGULANTS, ACCIDENTAL, INIT Status: Acute (3) Hemoptysis SNOMED Code(s): 68795460 ICD Code: R04.2 - HEMOPTYSIS Status: Acute (4) HTN (hypertension) SNOMED Code(s): 46931854 ICD Code: I10 - ESSENTIAL (PRIMARY) HYPERTENSION Status: Acute Problem List Initiated/Reviewed/Updated: Yes Orders Last 24hrs: Active Orders 24 hr Category Date Time Status Patient Status [ADT] Stat ADT 02/15/19 16:35 Active Ambulate [RC] ASDIRECTED Care 02/15/19 16:58 Ordered Communication Order [RC] ROUTINE Care 02/15/19 17:19 Ordered Influenza Vaccine Charge [RC] .DISCHARGE Care 02/16/19 12:00 Active Oxygen Therapy [RC] PRN Care 02/15/19 16:58 Ordered Pulse Oximetry [RC] PRN Care 02/15/19 17:04 Ordered RT Aerosol Therapy [RC] ASDIRECTED Care 02/15/19 17:14 Ordered Vital Signs [RC] Q4H Care 02/15/19 16:58 Ordered Clear Liquid Diet [DIET] Diet 02/15/19 Dinner Ordered UA RFX [place] AND CULT IF INDIC [URIN] Stat Lab 02/15/19 15:22 Ordered Albuterol/Ipratropium [DuoNeb 3.0-0.5 MG/3 ML] Med 02/15/19 16:58 Ordered 3 ml NEB Q4HRRT PRN Carvedilol [Coreg] Med 02/15/19 21:00 Ordered 25 mg PO BID FLU Vacc [id number](6MOS+)/PF [Fluzone Quad Med 02/15/19 17:30 Once Syringe] 60 mcg IM .ONCE ONE Furosemide [Lasix] Med 02/16/19 09:00 Ordered 40 mg PO DAILY Ondansetron [Zofran] Med 02/15/19 16:58 Ordered 4 mg IVPUSH Q4H PRN Spironolactone [Aldactone] Med 02/16/19 09:00 Ordered 25 mg PO DAILY Resuscitation Status Routine Resus Stat 02/15/19 16:58 Ordered Medication Orders Albuterol/Ipratropium (Duoneb 3.0-0.5 Mg/3 Ml) 3 ml NEB Q4HRRT PRN PRN Reason: Shortness Of Breath/wheezing Carvedilol (Coreg) 25 mg PO BID TOMAS Furosemide (Lasix) 40 mg PO DAILY TOMAS Influenza Virus Vaccine (Fluzone Quad Syringe) 60 mcg IM .ONCE ONE Stop: 02/15/19 17:31 Ondansetron HCl (Zofran) 4 mg IVPUSH Q4H PRN PRN Reason: Nausea/Vomiting Spironolactone (Aldactone) 25 mg PO DAILY TOMAS Assessment/Plan Comment:: A/P: 1) Supra-therapeutic INR: sec to Coumadin toxicity Will hold Coumadin, patient skipped his dose today Will hold off on FFP or Vit K as no more active bleeding last 24 hours Trend INR daily Hb stable If bleeding actively again, obtain repeat Hb stat, and administer FFP / Vit K 2) HTN: Cont Coreg, hold other meds as BP is on softer side 3)Mechanical valve: hold Coumadin for now
[2019-02-15] MEDS ORDERED: FLU Vacc QS2019-20(6MOS+)/PF 60 MCG/0.5 ML SYRINGE IM ONE (17:30)
[2019-02-15] MEDS: Carvedilol 25 MG Tab PO SCH (20:37)
[2019-02-16 06:57] LABS: BLOOD UREA NITROGEN,BUN 16 mg/dL (7.0-18.0); CARBON DIOXIDE,CO2 28.3 mmol/L (21.0-32.0); CHLORIDE,CL 102 mmol/L (98-107); GLUCOSE RANDOM 96 mg/dL (74-106); POTASSIUM,K 4.2 mmol/L (3.5-5.1); SODIUM,NA 138 mmol/L (136-148)
[2019-02-16] MEDS: Spironolactone 25 MG Tab PO SCH (08:36)
[2019-02-16] MEDS: Furosemide 40 MG Tab PO SCH (08:36)
[2019-02-16] MEDS: Carvedilol 25 MG Tab PO SCH (08:48)
[2019-02-16] MEDS: Carvedilol 12.5 MG Tab PO SCH ×2 (11:40→20:35)
[2019-02-16] MEDS: Acetaminophen 325 MG Tab PO PRN (12:14)
--- NOTE | 2019-02-16 18:11 | PCM.PN ---
<Jimy Peralta M - Last Filed: 02/16/19 18:14> - General Info Date of Service: 02/16/19 Subjective Update: 48-year-old male admitted for hemoptysis and supratherapeutic INR. Has a past medical history HFpEF and mechanical heart valve on warfarin. At bedside this morning, patient reported no complaints. He is having bowel movements and denies having any lightheaded, dizziness or any more vomiting. - Patient Data Vitals - Most Recent: Last Vital Signs Temp 98.2 F 02/16/19 16:00 Pulse 88 02/16/19 16:00 Resp 20 02/16/19 16:00 BP 99/66 02/16/19 16:00 Pulse Ox 96 02/16/19 17:04 Weight - Most Recent: 90.945 kg I&O - Last 24 Hours: Intake & Output 02/16/19 02/16/19 02/16/19 06:59 14:59 22:59 Intake Total 960 600 Output Total 600 1100 Balance 360 -500 Lab Results Last 24 Hours: Laboratory Results - last 24 hr 02/15/19 02/16/19 02/16/19 Range/Units 18:02 05:45 05:45 WBC 9.17 (4.0-11.0) K/uL RBC 5.12 (4.50-5.90) M/uL Hgb 13.9 (13.0-17.0) g/dL Hct 41.7 (38.0-50.0) % MCV 81.4 (80.0-98.0) fL MCH 27.1 (27.0-32.0) pg MCHC 33.3 (31.0-37.0) g/dL RDW Std Deviation 44.4 (28.0-62.0) fl RDW Coeff of Michael 15 (11.0-15.0) % Plt Count 141 L (150-400) K/uL MPV 11.40 (7.40-12.00) fL Neut % (Auto) 67.2 (48.0-80.0) % Lymph % (Auto) 19.5 (16.0-40.0) % [place] % (Auto) 13.0 (0.0-15.0) % Eos % (Auto) 0.2 (0.0-7.0) % Baso % (Auto) 0.1 (0.0-1.5) % Neut # (Auto) 6.2 H (1.4-5.7) K/uL Lymph # (Auto) 1.8 (0.6-2.4) K/uL [place] # (Auto) 1.2 H (0.0-0.8) K/uL Eos # (Auto) 0.0 (0.0-0.7) K/uL Baso # (Auto) 0.0 (0.0-0.1) K/uL Nucleated RBC % 0.0 /100WBC Nucleated RBCs # 0 K/uL INR 4.69 Sodium (136-148) mmol/L Potassium (3.5-5.1) mmol/L Chloride (98-107) mmol/L Carbon Dioxide (21.0-32.0) mmol/L BUN (7.0-18.0) mg/dL Creatinine (0.8-1.3) mg/dL Est Cr Clr Drug Dosing mL/min Estimated GFR (MDRD) ml/min Glucose (74-106) mg/dL Calcium (8.5-10.1) mg/dL Phosphorus (2.6-4.7) mg/dL Magnesium (1.8-2.4) mg/dL Urine Color YELLOW Urine Appearance CLEAR Urine pH 6.0 (5.0-8.0) Ur Specific [place] 1.015 (1.001-1.035) Urine Protein NEGATIVE (NEGATIVE) mg/dL Urine Glucose (UA) NEGATIVE (NEGATIVE) mg/dL Urine Ketones NEGATIVE (NEGATIVE) mg/dL Urine Occult Blood NEGATIVE (NEGATIVE) Urine Nitrite NEGATIVE (NEGATIVE) Urine Bilirubin NEGATIVE (NEGATIVE) Urine Urobilinogen 0.2 (<2.0) EU/dL Ur Leukocyte Esterase NEGATIVE (NEGATIVE) 02/16/19 Range/Units 05:45 WBC (4.0-11.0) K/uL RBC (4.50-5.90) M/uL Hgb (13.0-17.0) g/dL Hct (38.0-50.0) % MCV (80.0-98.0) fL MCH (27.0-32.0) pg MCHC (31.0-37.0) g/dL RDW Std Deviation (28.0-62.0) fl RDW Coeff of Michael (11.0-15.0) % Plt Count (150-400) K/uL MPV (7.40-12.00) fL Neut % (Auto) (48.0-80.0) % Lymph % (Auto) (16.0-40.0) % [place] % (Auto) (0.0-15.0) % Eos % (Auto) (0.0-7.0) % Baso % (Auto) (0.0-1.5) % Neut # (Auto) (1.4-5.7) K/uL Lymph # (Auto) (0.6-2.4) K/uL [place] # (Auto) (0.0-0.8) K/uL Eos # (Auto) (0.0-0.7) K/uL Baso # (Auto) (0.0-0.1) K/uL Nucleated RBC % /100WBC Nucleated RBCs # K/uL INR Sodium 138 (136-148) mmol/L Potassium 4.2 (3.5-5.1) mmol/L Chloride 102 (98-107) mmol/L Carbon Dioxide 28.3 (21.0-32.0) mmol/L BUN 16 (7.0-18.0) mg/dL Creatinine 1.1 (0.8-1.3) mg/dL Est Cr Clr Drug Dosing 75.95 mL/min Estimated GFR (MDRD) > 60.0 ml/min Glucose 96 (74-106) mg/dL Calcium 8.7 (8.5-10.1) mg/dL Phosphorus 2.9 (2.6-4.7) mg/dL Magnesium 2.0 (1.8-2.4) mg/dL Urine Color Urine Appearance Urine pH (5.0-8.0) Ur Specific [place] (1.001-1.035) Urine Protein (NEGATIVE) mg/dL Urine Glucose (UA) (NEGATIVE) mg/dL Urine Ketones (NEGATIVE) mg/dL Urine Occult Blood (NEGATIVE) Urine Nitrite (NEGATIVE) Urine Bilirubin (NEGATIVE) Urine Urobilinogen (<2.0) EU/dL Ur Leukocyte Esterase (NEGATIVE) [place] Results Last 24 Hours: Microbiology 02/15/19 15:20 Influenza Type A Antigen Screen - Final Nasopharyngeal Swab NEGATIVE INFLUENZA A VIRUS AG REFERENCE RANGE: NEGATIVE Influenza Type B Antigen Screen - Final NEGATIVE INFLUENZA B VIRUS AG REFERENCE RANGE: NEGATIVE Med Orders - Current: Current Medications Acetaminophen (Tylenol) 650 mg PO Q4H PRN PRN Reason: Pain Last Admin: 02/16/19 12:14 Dose: 650 mg Albuterol/Ipratropium (Duoneb 3.0-0.5 Mg/3 Ml) 3 ml NEB Q4HRRT PRN PRN Reason: Shortness Of Breath/wheezing Carvedilol (Coreg) 12.5 mg PO BID [facility] Last Admin: 02/16/19 11:40 Dose: 12.5 mg Furosemide (Lasix) 40 mg PO DAILY [facility] Last Admin: 02/16/19 08:36 Dose: 40 mg Ondansetron HCl (Zofran) 4 mg IVPUSH Q4H PRN PRN Reason: Nausea/Vomiting Last Admin: 02/15/19 17:30 Dose: 4 mg Spironolactone (Aldactone) 25 mg PO DAILY [facility] Last Admin: 02/16/19 08:36 Dose: 25 mg Discontinued Medications Carvedilol (Coreg) 25 mg PO BID [facility] Last Admin: 02/16/19 08:48 Dose: Not Given Sodium Chloride (Normal Saline) 1,000 mls @ 999 mls/hr IV STAT ONE Stop: 02/15/19 16:22 Last Admin: 02/15/19 15:53 Dose: 999 mls/hr Influenza Virus Vaccine (Pharmacy To Dose - Influenza Vaccine) 1 each IM ONETIME ONE Stop: 02/16/19 12:01 Influenza Virus Vaccine (Fluzone Quad [id number] Syringe) 60 mcg IM .ONCE ONE Stop: 02/15/19 17:31 - Exam General: Alert, Oriented, Cooperative, No Acute Distress Lungs: Clear to Auscultation Cardiovascular: Regular Rate, Regular Rhythm GI/Abdominal Exam: Normal Bowel Sounds, Soft, Non-Tender, No Distention Extremities: Normal Inspection, No Pedal Edema Peripheral Pulses: 2+: Posterior Tibial (L), Posterior Tibial (R) - Problem List Review Problem List Initiated/Reviewed/Updated: Yes - My Orders Last 24 Hours: My Active Orders 02/16/19 12:01 Acetaminophen [Tylenol] 650 mg PO Q4H PRN - Assessment Assessment:: Assessment: 1. Supratherapeutic INR, on chronic warfarin therapy. 2. Hypotension 3. Hemoptysis in setting of #1, resolved. 4. History of mechanical heart valve, on warfarin. 5. Diastolic heart failure with preserved EF. Plan: 1. For supratherapeutic INR, will continue to hold warfarin. INR improved to 4.69 down from 7.5 yesterday. Pharmacy consulted for warfarin dosing. Will continue to trend INR. Hemoglobin remains stable. 2. For hypotension, will continue to hold losartan and spironolactone. Will decrease coreg dose to 12.5 mg BID. Will continue to monitor. - Plan Plan:: A/P: 1) Supra-therapeutic INR: sec to Coumadin toxicity Will hold Coumadin, patient skipped his dose today Will hold off on FFP or Vit K as no more active bleeding last 24 hours Trend INR daily Hb stable If bleeding actively again, obtain repeat Hb stat, and administer FFP / Vit K 2) HTN: Cont Coreg, hold other meds as BP is on softer side 3)Mechanical valve: hold Coumadin for now <Yong Tucker - Last Filed: 02/22/19 09:10> - Patient Data Vitals - Most Recent: Last Vital Signs Temp 36.6 C 02/17/19 12:00 Pulse 78 02/17/19 12:00 Resp 20 02/17/19 12:00 BP 104/67 02/17/19 12:00 Pulse Ox 96 02/17/19 12:00 Med Orders - Current: Current Medications Discontinued Medications Acetaminophen (Tylenol) 650 mg PO Q4H PRN PRN Reason: Pain Last Admin: 02/17/19 08:10 Dose: 650 mg Albuterol/Ipratropium (Duoneb 3.0-0.5 Mg/3 Ml) 3 ml NEB Q4HRRT PRN PRN Reason: Shortness Of Breath/wheezing Carvedilol (Coreg) 25 mg PO BID [facility] Last Admin: 02/16/19 08:48 Dose: Not Given Carvedilol (Coreg) 12.5 mg PO BID [facility] Last Admin: 02/17/19 08:09 Dose: 12.5 mg Furosemide (Lasix) 40 mg PO DAILY [facility] Last Admin: 02/17/19 08:10 Dose: 40 mg Sodium Chloride (Normal Saline) 1,000 mls @ 999 mls/hr IV STAT ONE Stop: 02/15/19 16:22 Last Admin: 02/15/19 15:53 Dose: 999 mls/hr Influenza Virus Vaccine (Pharmacy To Dose - Influenza Vaccine) 1 each IM ONETIME ONE Stop: 02/16/19 12:01 Influenza Virus Vaccine (Fluzone Quad Syringe) 60 mcg IM .ONCE ONE Stop: 02/15/19 17:31 Influenza Virus Vaccine (Fluzone Quad Syringe) 60 mcg IM .ONCE ONE Stop: 02/17/19 12:31 Last Admin: 02/17/19 12:17 Dose: 60 mcg Ondansetron HCl (Zofran) 4 mg IVPUSH Q4H PRN PRN Reason: Nausea/Vomiting Last Admin: 02/15/19 17:30 Dose: 4 mg Spironolactone (Aldactone) 25 mg PO DAILY [facility] Last Admin: 02/17/19 08:10 Dose: 25 mg Warfarin Sodium (Coumadin) 7.5 mg PO 02/17/19@1115 [facility] Stop: 02/17/19 11:16 Last Admin: 02/17/19 11:28 Dose: 7.5 mg - Problem List & Annotations (1) Mechanical heart valve present SNOMED Code(s): 07010322034869, 73836461, 390051812, 731921130, 79115821383495 Code(s): Z95.2 - PRESENCE OF PROSTHETIC HEART VALVE Status: Acute (2) Coumadin toxicity SNOMED Code(s): 46983163 Code(s): T45.511A - POISONING BY ANTICOAGULANTS, ACCIDENTAL, INIT Status: Acute (3) Hemoptysis SNOMED Code(s): 52779706 Code(s): R04.2 - HEMOPTYSIS Status: Acute (4) HTN (hypertension) SNOMED Code(s): 12400085 Code(s): I10 - ESSENTIAL (PRIMARY) HYPERTENSION Status: Acute - Plan Plan:: I have seen and examined the patient, i have discussed the management plan with the resident and agree with the documentation unless specified otherwise in my note.
[2019-02-17 06:41] LABS: BLOOD UREA NITROGEN,BUN 11 mg/dL (7.0-18.0); CARBON DIOXIDE,CO2 29.1 mmol/L (21.0-32.0); CHLORIDE,CL 100 mmol/L (98-107); GLUCOSE RANDOM 107 mg/dL (74-106); SODIUM,NA 137 mmol/L (136-148)
[2019-02-17] MEDS: Carvedilol 12.5 MG Tab PO SCH (08:09)
[2019-02-17] MEDS: Spironolactone 25 MG Tab PO SCH (08:10)
[2019-02-17] MEDS: Furosemide 40 MG Tab PO SCH (08:10)
[2019-02-17] MEDS: Acetaminophen 325 MG Tab PO PRN (08:10)
[2019-02-17] MEDS ORDERED: Warfarin 2.5 MG Tab PO SCH (11:15)
--- NOTE | 2019-02-17 11:47 | PCM.DCSUM1 ---
<Jimy Peralta - Last Filed: 02/17/19 11:42> Discharge Summary - Hospital Course Free Text/Narrative:: 48-year-old male admitted for history of hemoptysis 2 days prior to presenting to hospital. Patient has a history of diastolic heart failure and mechanical heart valve for which he is on chronic warfarin therapy. On admission, he was found to have INR of 7.5. His warfarin was held on admission and on day of discharge it had improved to 2.37. He was discharged on his home dose of warfarin of 7.5 mg on Sat, Sat, Sat and 5 mg on Sat Sun. He was advised to follow-up with coagulation clinic on 02/23/19. Furthermore, patient' s blood pressure were noted to be approximately ~90/60's mm Hg but did improve on day of discharge. Advised patient to hold his losartan until he is cleared to resume it after blood pressure check by a PCP. His carvedilol dose was also decreased to 12.5 mg BID. New scripts for carvedilol and warfarin sent electronically to [facility]. Patient verbalized understanding. Advised to follow-up with pipe line repairer and PCP. - Discharge Data Discharge Date: 02/17/19 Discharge Disposition: Home, Self-Care 01 Condition: Stable - Referral to Home Health Primary Care Physician: Viet Berrios MD - Patient Instructions Diet: Heart Healthy Diet Activity: As Tolerated Notify Provider of: Fever, Increased Pain, Swelling and Redness, Drainage, Nausea and/or Vomiting - Discharge Plan *PRESCRIPTION DRUG MONITORING PROGRAM REVIEWED*: Not Applicable *COPY OF PRESCRIPTION DRUG MONITORING REPORT IN PATIENT OMAIRA: Not Applicable Prescriptions/Med Rec: carvediloL [Coreg] 12.5 mg PO BID 30 Days #60 tablet Warfarin [Coumadin] 5 mg PO ASDIRECTED 30 Days #36 tablet Home Medications: Home Meds Fish Oil/[place]-3 Fatty Acids [Fish Oil 1,000 MG] 2 each PO DAILY 02/21/18 [ History] Aspirin [Adult Low Dose Aspirin EC] 81 mg PO DAILY #100 tablet. 02/23/18 [Rx] FA/Lycopene/Lut/MV,Ca,Iron,Min [Centrum] 1 tab PO DAILY 08/22/18 [History] Furosemide [Lasix] 40 mg PO QAM 08/22/18 [History] Potassium Chloride [Klor-Con M20] 20 meq PO DAILY 08/22/18 [History] Spironolactone [Aldactone] 1 tab PO DAILY 08/22/18 [History] Warfarin [Coumadin] 5 mg PO ASDIRECTED 30 Days #36 tablet 02/17/19 [Rx] carvediloL [Coreg] 12.5 mg PO BID 30 Days #60 tablet 02/17/19 [Rx] Oxygen Therapy Mode: Room Air Patient Handouts: Hemoptysis, [id number], What You Need to Know About Warfarin, Carvedilol tablets, Warfarin tablets Referrals: Viet Berrios MD [Primary Care Provider] - 03/10/19 4:00 pm Jimy Peralta MD [Resident] - 02/25/19 1:00 pm - Discharge Summary/Plan Comment DC Time >30 min.: No - Patient Data Vitals - Most Recent: Last Vital Signs Temp 100.2 F 02/17/19 08:00 Pulse 85 02/17/19 08:09 Resp 16 02/17/19 08:00 BP 115/66 02/17/19 08:09 Pulse Ox 95 02/17/19 08:00 Weight - Most Recent: 90.945 kg I&O - Last 24 hours: Intake & Output 02/16/19 02/17/19 02/17/19 22:59 06:59 14:59 Intake Total 600 1000 120 Output Total 1100 700 Balance -500 300 120 Lab Results - Last 24 hrs: Laboratory Results - last 24 hr 02/17/19 02/17/19 02/17/19 Range/Units 06:18 06:18 06:18 WBC 8.84 (4.0-11.0) K/uL RBC 5.04 (4.50-5.90) M/uL Hgb 13.6 (13.0-17.0) g/dL Hct 40.9 (38.0-50.0) % MCV 81.2 (80.0-98.0) fL MCH 27.0 (27.0-32.0) pg MCHC 33.3 (31.0-37.0) g/dL RDW Std Deviation 43.5 (28.0-62.0) fl RDW Coeff of Michael 15 (11.0-15.0) % Plt Count 153 (150-400) K/uL MPV 11.30 (7.40-12.00) fL Neut % (Auto) 67.8 (48.0-80.0) % Lymph % (Auto) 21.0 (16.0-40.0) % [place] % (Auto) 10.9 (0.0-15.0) % Eos % (Auto) 0.2 (0.0-7.0) % Baso % (Auto) 0.1 (0.0-1.5) % Neut # (Auto) 6.0 H (1.4-5.7) K/uL Lymph # (Auto) 1.9 (0.6-2.4) K/uL [place] # (Auto) 1.0 H (0.0-0.8) K/uL Eos # (Auto) 0.0 (0.0-0.7) K/uL Baso # (Auto) 0.0 (0.0-0.1) K/uL Nucleated RBC % 0.0 /100WBC Nucleated RBCs # 0 K/uL INR 2.37 Sodium 137 (136-148) mmol/L Potassium 4.0 (3.5-5.1) mmol/L Chloride 100 (98-107) mmol/L Carbon Dioxide 29.1 (21.0-32.0) mmol/L BUN 11 (7.0-18.0) mg/dL Creatinine 1.1 (0.8-1.3) mg/dL Est Cr Clr Drug Dosing 75.95 mL/min Estimated GFR (MDRD) > 60.0 ml/min Glucose 107 H (74-106) mg/dL Calcium 8.6 (8.5-10.1) mg/dL Med Orders - Current: Current Medications Acetaminophen (Tylenol) 650 mg PO Q4H PRN PRN Reason: Pain Last Admin: 02/17/19 08:10 Dose: 650 mg Albuterol/Ipratropium (Duoneb 3.0-0.5 Mg/3 Ml) 3 ml NEB Q4HRRT PRN PRN Reason: Shortness Of Breath/wheezing Carvedilol (Coreg) 12.5 mg PO BID ON [facility] OF [facility] Last Admin: 02/17/19 08:09 Dose: 12.5 mg Furosemide (Lasix) 40 mg PO DAILY [facility] Last Admin: 02/17/19 08:10 Dose: 40 mg Ondansetron HCl (Zofran) 4 mg IVPUSH Q4H PRN PRN Reason: Nausea/Vomiting Last Admin: 02/15/19 17:30 Dose: 4 mg Spironolactone (Aldactone) 25 mg PO DAILY [facility] Last Admin: 02/17/19 08:10 Dose: 25 mg Discontinued Medications Carvedilol (Coreg) 25 mg PO BID [facility] Last Admin: 02/16/19 08:48 Dose: Not Given Sodium Chloride (Normal Saline) 1,000 mls @ 999 mls/hr IV STAT ONE Stop: 02/15/19 16:22 Last Admin: 02/15/19 15:53 Dose: 999 mls/hr Influenza Virus Vaccine (Pharmacy To Dose - Influenza Vaccine) 1 each IM ONETIME ONE Stop: 02/16/19 12:01 Influenza Virus Vaccine (Fluzone Quad [id number] Syringe) 60 mcg IM .ONCE ONE Stop: 02/15/19 17:31 Warfarin Sodium (Coumadin) 7.5 mg PO 02/17/19@1115 [facility] Stop: 02/17/19 11:16 Last Admin: 02/17/19 11:28 Dose: 7.5 mg <Chaim Vann J - Last Filed: 02/21/19 12:09> Discharge Summary - Referral to Home Health Primary Care Physician: Viet Berrios MD - Patient Data Vitals - Most Recent: Last Vital Signs Temp 36.6 C 02/17/19 12:00 Pulse 78 02/17/19 12:00 Resp 20 02/17/19 12:00 BP 104/67 02/17/19 12:00 Pulse Ox 96 02/17/19 12:00 Med Orders - Current: Current Medications Discontinued Medications Acetaminophen (Tylenol) 650 mg PO Q4H PRN PRN Reason: Pain Last Admin: 02/17/19 08:10 Dose: 650 mg Albuterol/Ipratropium (Duoneb 3.0-0.5 Mg/3 Ml) 3 ml NEB Q4HRRT PRN PRN Reason: Shortness Of Breath/wheezing Carvedilol (Coreg) 25 mg PO BID [facility] Last Admin: 02/16/19 08:48 Dose: Not Given Carvedilol (Coreg) 12.5 mg PO BID [facility] Last Admin: 02/17/19 08:09 Dose: 12.5 mg Furosemide (Lasix) 40 mg PO DAILY [facility] Last Admin: 02/17/19 08:10 Dose: 40 mg Sodium Chloride (Normal Saline) 1,000 mls @ 999 mls/hr IV STAT ONE Stop: 02/15/19 16:22 Last Admin: 02/15/19 15:53 Dose: 999 mls/hr Influenza Virus Vaccine (Pharmacy To Dose - Influenza Vaccine) 1 each IM ONETIME ONE Stop: 02/16/19 12:01 Influenza Virus Vaccine (Fluzone Quad Syringe) 60 mcg IM .ONCE ONE Stop: 02/15/19 17:31 Influenza Virus Vaccine (Fluzone Quad Syringe) 60 mcg IM .ONCE ONE Stop: 02/17/19 12:31 Last Admin: 02/17/19 12:17 Dose: 60 mcg Ondansetron HCl (Zofran) 4 mg IVPUSH Q4H PRN PRN Reason: Nausea/Vomiting Last Admin: 02/15/19 17:30 Dose: 4 mg Spironolactone (Aldactone) 25 mg PO DAILY [facility] Last Admin: 02/17/19 08:10 Dose: 25 mg Warfarin Sodium (Coumadin) 7.5 mg PO 02/17/19@1115 [facility] Stop: 02/17/19 11:16 Last Admin: 02/17/19 11:28 Dose: 7.5 mg - Free Text/Narrative Note: I have examined the patient with the resident. I have discussed findings and treatment plan with the resident. I agree with the assessment and plan as outlined in the following note.
[2019-02-17] MEDS ORDERED: FLU Vacc QS2019-20(6MOS+)/PF 60 MCG/0.5 ML SYRINGE IM ONE (12:30)
== END 2019-02-17 12:50 | disposition home or self-care (01) ==
LOC: MW.ED 15:06 → MW.MS 16:35
PROVIDERS: ADMIT Student in an Organized Health Care Education/Training Program; ATTEND Student in an Organized Health Care Education/Training Program
DX: R04.2 Hemoptysis (principal); R79.1 Abnormal coagulation profile; T45.515A Adverse effect of anticoagulants, initial encounter; I95.9 Hypotension, unspecified; I11.0 Hypertensive heart disease with heart failure; I50.32 Chronic diastolic (congestive) heart failure; Z23 Encounter for immunization; Z95.2 Presence of prosthetic heart valve; Z79.01 Long term (current) use of anticoagulants; Z79.82 Long term (current) use of aspirin; Z79.899 Other long term (current) drug therapy
CPT/HCPCS: 36415; 71046; 80048; 80053; 81003; 83735; 83880; 84100; 85025; 85610; 87804; 90471; 90686; 93005; 96361; 96374; 99285; A9270; G0378; J2405; J7040; 99283; G0008; J7030

== ENCOUNTER 2020-05-20 23:29 | Emergency (ER) | payer SELFPAY ==
[2020-05-20] MEDS ORDERED: traMADol 50 MG Tab PO ONE (23:39)
--- NOTE | 2020-05-21 00:02 | EDM.PDOC ---
ED HPI GENERAL MEDICAL PROBLEM - General Chief Complaint: Trauma Stated Complaint: RT WRIST PAIN FROM FALL Time Seen by Provider: 05/20/20 23:37 - History of Present Illness INITIAL COMMENTS - FREE TEXT/NARRATIVE: HISTORY AND PHYSICAL: History of present illness: This is a 49-year-old gentleman with a history significant for coronary disease who is status post bypass surgery and is currently on anticoagulants presents to the ER today secondary to a fall at approximately 2:30 PM on wet water. Patient reports no head trauma or loss of consciousness. Patient reports that he was taking Tylenol at home without any significant relief. Patient reports pain greatest in his right wrist, right elbow, lower back, and right lateral neck. Patient reports no headache, no nausea vomiting, diarrhea. Patient has any recent fevers, shakes, chills, cough, URI, abdominal pain. Patient reports he is currently taking Coumadin. Review of systems: As per history of present illness and below otherwise all systems reviewed and negative. Past medical history: As per history of present illness and as reviewed below otherwise noncontributory. Surgical history: As per history of present illness and as reviewed below otherwise n oncontributory. Social history: No reported history of drug or alcohol abuse. Family history: As per history of present illness and as reviewed below otherwise noncontributory. Physical exam: Constitutional: Patient is oriented to person, place, and time. Appears well- developed and well-nourished. No distress. HEENT: Moist mucous membranes Head: Normocephalic and atraumatic Eyes: Right eye exhibits no discharge. Left eye exhibits no discharge. No scleral icterus no papilledema Neck: Normal range of motion. No tracheal deviation present. Cardiovascular: Normal rate and regular rhythm. Pulmonary: Effort normal, no respiratory distress. Abdominal: No distention Musculoskeletal: Normal range of motion Neurologic: Alert and oriented to person, place and time. Skin: [place], warm and dry. Psychiatric: Normal mood and affect. Behavior is normal. Judgment and thought content normal. Nursing note and vital signs have been reviewed This patient was seen and evaluated during the 2019 SARS-CoV-2 novel coronavirus pandemic period. Community viral transmission is ongoing at time of this encounter and the emergency department is operating under pandemic response procedures. Patient has no C-spine T-spine or L-spine tenderness to palpation. Patient has no left upper or right upper quadrant tenderness to palpation. Patient has no crepitus to palpation to the anterior chest wall. Patient is neurologically intact. Patient does not present with any signs or or symptoms that would be consistent with acute intracranial, intra-abdominal, intrathoracic, or long bone injury. All long bones have been palpated and range of motion been performed and there is no evidence of any acute pathology. Patient's ER physical exam significant for tenderness to palpation with swelling to the lateral aspect of his right wrist, patient with tenderness to palpation to his right elbow but with full range of motion no deformity or swelling. Patient with tenderness palpation to his right lower back and right sternocostal minor muscles. Patient has no soft tissue swelling or tenderness to palpation to his head. Patient denies any headache. Patient's pupils are equally round and reactive to light. Extraocular motions intact. Diagnostics: [] Therapeutics: Ultram 50 mg p.o. Assessment and plan: This is a 49-year-old gentleman who presents ER today secondary to wrist pain after a fall at approximately 2:30 PM. This was approximately 9 hours prior to arrival to the ED. Patient is nontoxic-appearing. Patient has no evidence of any head injury and no concern at this time or indication for CT scan of his head. X-ray of patient's right wrist reveals no acute fracture. Patient was given Ultram for pain. Definitive disposition and diagnosis as appropriate pending reevaluation and review of above. - Related Data Allergies Allergy/AdvReac Type Severity Reaction Status Date / Time No Known Allergies Allergy Verified 02/15/19 17:07 Home Meds: Home Meds Fish Oil/[place]-3 Fatty Acids [Fish Oil 1,000 MG] 2 each PO DAILY 02/21/18 [History] Aspirin [Adult Low Dose Aspirin EC] 81 mg PO DAILY #100 tablet. 02/23/18 [Rx] FA/Lycopene/Lut/MV,Ca,Iron,Min [Centrum] 1 tab PO DAILY 08/22/18 [History] Furosemide [Lasix] 40 mg PO QAM 08/22/18 [History] Potassium Chloride [Klor-Con M20] 20 meq PO DAILY 08/22/18 [History] Spironolactone [Aldactone] 1 tab PO DAILY 08/22/18 [History] Warfarin [Coumadin] 5 mg PO ASDIRECTED 30 Days #36 tablet 02/17/19 [Rx] carvediloL [Coreg] 12.5 mg PO BID 30 Days #60 tablet 02/17/19 [Rx] Cyclobenzaprine [Flexeril] 10 mg PO TID PRN #20 tab 05/21/20 [Rx] traMADol [Ultram] 50 mg PO Q6H PRN #12 tab 05/21/20 [Rx] Past Medical History HEENT History: Reports: None Cardiovascular History: Reports: Heart Failure, Heart Murmur, Heart Valve Replacement, Other (See Below) Respiratory History: Reports: None Gastrointestinal History: Reports: None Genitourinary History: Reports: None Musculoskeletal History: Reports: None Hematologic History: Reports: Anticoagulation Therapy Oncologic (Cancer) History: Reports: None - Infectious Disease History Infectious Disease History: Reports: Chicken Pox - Past Surgical History Cardiovascular Surgical History: Reports: Valve Replacement GI Surgical History: Reports: Hernia Repair/Other Social & Family History - Family History Family Medical History: No Pertinent Family History - Caffeine Use Caffeine Use: Reports: None Review of Systems - Review of Systems Review Of Systems: See Below ED EXAM, GENERAL - Physical Exam Exam: See Below Course - Orders/Labs/Meds Orders: Active Orders 24 hr Category Date Time Status Wrist Comp Min 3V Rt [CR] Stat Exams 05/20/20 23:38 Taken Meds: Medications Discontinued Medications Generic Name Dose Route Start Last Admin Trade Name Charlyq PRN Reason Stop Dose Admin Tramadol HCl 50 mg 05/20/20 23:39 05/20/20 23:44 Ultram PO 05/20/20 23:40 50 mg ONETIME ONE Administration Departure - Departure Time of Disposition: 00:15 Disposition: Home, Self-Care 01 Condition: Good Clinical Impression: On anticoagulant therapy, Elbow pain, right Right wrist sprain Qualifiers: Encounter type: initial encounter Qualified Code(s): S63.501A - Unspecified sprain of right wrist, initial encounter Fall Qualifiers: Encounter type: initial encounter Qualified Code(s): W19.XXXA - Unspecified fall, initial encounter Low back pain Qualifiers: Chronicity: acute Back pain laterality: right Sciatica presence: without sciatica Qualified Code(s): M54.5 - Low back pain - Discharge Information Instructions: Wrist Sprain, Adult, Musculoskeletal Pain Referrals: PCP,None [Ordering Only Provider] - Forms: ED Department Discharge Additional Instructions: You were seen and evaluated in the ER today secondary to a fall that occurred earlier today. Your exam reveals you have significant musculoskeletal injury but no evidence of fracture. The x-ray that we obtained of your right wrist reveals no fracture on the x-ray. You will be given a prescription for Ultram to assist you with your pain. You can continue taking Tylenol along with the Ultram to help you with your pain and discomfort. Please make an appointment to see your doctor in the next 1 to 2 days for reevaluation if your pain persists. The following information is given to patients seen in the emergency department who are being discharged to home. This information is to outline your options for follow-up care. We provide all patients seen in our emergency department with a follow-up referral. The need for follow-up, as well as the timing and circumstances, are variable depending upon the specifics of your emergency department visit. If you don't have a primary care physician on staff, we will provide you with a referral. We always advise you to contact your personal physician following an emergency department visit to inform them of the circumstance of the visit and for follow-up with them and/or the need for any referrals to a consulting specialist. The emergency department will also refer you to a specialist when appropriate. This referral assures that you have the opportunity for follow-up care with a specialist. All of these measure are taken in an effort to provide you with optimal care, which includes your follow-up. Under all circumstances we always encourage you to contact your private physician who remains a resource for coordinating your care. When calling for follow-up care, please make the office aware that this follow-up is from your recent emergency room visit. If for any reason you are refused follow-up, please contact the [facility] Emergency Department at and asked to speak to the emergency department charge nurse. [facility] - [facility] [address] [place] [id number] [facility] [address] [place] [id number] - My Orders Last 24 Hours: My Active Orders 02/19/21 23:38 Wrist Comp Min 3V Rt [CR] Stat - Assessment/Plan Last 24 Hours: My Active Orders 05/20/20 23:38 Wrist Comp Min 3V Rt [CR] Stat
--- NOTE | 2020-05-21 00:35 | CR ---
Indication: Wrist pain Technique: Three views Comparison: None Findings: Bones: Alignment is normal. No fractures or bone lesions. Joint spaces: Unremarkable. Soft tissues: Medial soft tissue swelling. Dictated by Victor Hugo May MD @ May 21 2020 12:30AM Signed by Dr. Victor Hugo May @ May 21 2020 12:33AM
== END 2020-05-21 00:40 | disposition home or self-care (01) ==
LOC: MW.ED 23:29
DX: S63.501A Unspecified sprain of right wrist, initial encounter (principal); M54.5 Low back pain; M25.521 Pain in right elbow; I25.10 Atherosclerotic heart disease of native coronary artery without angina pectoris; I50.9 Heart failure, unspecified; Z79.82 Long term (current) use of aspirin; Z79.899 Other long term (current) drug therapy; Z79.01 Long term (current) use of anticoagulants; Z95.1 Presence of aortocoronary bypass graft; W19.XXXA Unspecified fall, initial encounter
CPT/HCPCS: 73110; 99283; A9270

== ENCOUNTER 2022-07-27 14:44 | Emergency (ER) | payer SELFPAY ==
[2022-07-27] MEDS ORDERED: Sodium Chloride 0.9% 10 ML Syringe FLUSH PRN (15:02)
[2022-07-27] MEDS ORDERED: Orphenadrine 60 MG/2 ML Inj IM ONE (15:03)
[2022-07-27] MEDS ORDERED: Ketorolac 30 MG/ML SDV IVPUSH ONE (15:03)
[2022-07-27] MEDS ORDERED: Acetaminophen 325 MG Tab PO ONE (15:04)
[2022-07-27] MEDS: Sodium Chloride 0.9% 2.5 ML Syringe FLUSH PRN ×2 (15:21→15:23)
[2022-07-27 15:33] LABS: CARBON DIOXIDE,CO2 29.3 mmol/L (21.0-32.0); POTASSIUM,K 4.1 mmol/L (3.5-5.1)
== END 2022-07-27 19:03 | disposition home or self-care (01) ==
LOC: MW.ED 14:44
DX: R07.89 Other chest pain (principal); M43.6 Torticollis; Z79.82 Long term (current) use of aspirin; Z79.899 Other long term (current) drug therapy; Z79.01 Long term (current) use of anticoagulants
CPT/HCPCS: 36415; 71045; 80053; 84484; 85025; 85610; 93005; 96372; 96374; 99284; A9270; J1885; J2360; J3490; 93010

== ENCOUNTER 2022-08-22 06:49 | Emergency (ER) | payer SELFPAY ==
[2022-08-22] MEDS ORDERED: Diazepam 2 MG Tab PO ONE (07:21)
== END 2022-08-22 07:58 | disposition home or self-care (01) ==
LOC: MW.ED 06:49
DX: M43.6 Torticollis (principal); Z79.82 Long term (current) use of aspirin; Z79.01 Long term (current) use of anticoagulants
CPT/HCPCS: 99283; A9270

== ENCOUNTER 2022-08-26 03:04 | Emergency (ER) | payer SELFPAY ==
[2022-08-26] MEDS ORDERED: Ketorolac 30 MG/ML SDV IM ONE (03:36)
[2022-08-26] MEDS ORDERED: Benztropine 1 MG Tab PO ONE (03:38)
== END 2022-08-26 04:46 | disposition home or self-care (01) ==
LOC: MW.ED 03:04
DX: M43.6 Torticollis (principal); Z79.82 Long term (current) use of aspirin; Z79.01 Long term (current) use of anticoagulants; Z95.5 Presence of coronary angioplasty implant and graft
CPT/HCPCS: 96372; 99283; A9270; J1885; J3360